=== PATIENT | female | born 1955 ===

== ENCOUNTER 2024-05-06 05:18 | Day surgery (SDC) | payer OTHER ==
[~2024-05-06 05:18] MED LIST: BUSPIRONE HCL10 MG PO; LIPOFEN150 MG PO; NORVASC10 MG PO; ROSUVASTATIN CA40 MG PO; ZEGERID 40 MG1 EACH PO
[2024-05-06] MEDS ORDERED: VANCOMYCIN HCL 1,000 MG VIAL IR ONE (10:15)
[2024-05-06] MEDS ORDERED: CEFAZOLIN SODIUM 1,000 MG VIAL IV ONE (10:15)
[2024-05-06] MEDS ORDERED: MACROBID 100 M100 MG PO (10:23)
[2024-05-06] MEDS ORDERED: TRAM1TAB98 PO (10:24)
== END 2024-05-06 13:30 | disposition home or self-care (01) ==
LOC: CIR.AMB 05:18
PROVIDERS: ATTEND Obstetrics & Gynecology Gynecology
DX: N39.3 Stress incontinence (female) (male) (principal); I10 Essential (primary) hypertension; M85.869 Other specified disorders of bone density and structure, unspecified lower leg; M19.90 Unspecified osteoarthritis, unspecified site; K21.9 Gastro-esophageal reflux disease without esophagitis